=== PATIENT | female | born 1950 | race Caucasian/White ===

== ENCOUNTER 2017-09-29 14:40 | Inpatient (IN) | payer MEDICARE, OTHER ==
[~2017-09-29] VITALS: Ht 152.4 cm; Wt 68.0 kg
[2017-09-29] MEDS ORDERED: SODIUM CHLORIDE 0.9% 1,000 ML IVB ONE (15:14)
[2017-09-29 15:30] LABS: Basophils # (auto) 0.1 uL; Basophils % (auto) 1.2 % (0.0-2.0); Eosinophils # (auto) 0.2 uL; Eosinophils % (auto) 3.8 % (0.0-7.0); Hematocrit 37.7 % (36.0-46.0); Hemoglobin 12.1 g/dL (12.2-16.2); Lymphocytes % (auto) 15.8 % (10.0-50.0); Mean Corpuscular Hemoglobin 27.6 pg (28.0-32.0); Mean Corpuscular Hgb Conc. 32.1 g/dL (32.0-36.0); Monocytes # (auto) 0.4 uL; Monocytes % (auto) 6.3 % (0.0-12.0); Neutrophils # (auto) 4.5 uL; Neutrophils % (auto) 72.9 % (37.0-80.0); Nucleated Red Blood Cells % 0.1 %; Platelet Count (auto) 389 10^3/uL (140-450); Red Blood Cells 4.39 10^6/uL (4.0-5.20); Red Cell Distribution Width 18.5 % (11.8-14.3); White Blood Cell 6.2 10^3/uL (4.4-10.8)
[2017-09-29] MEDS ORDERED: DEXTROSE (50%) 50ML SYRG IV ONE (15:45)
[2017-09-29 15:51] LABS: Albumin 3.4 g/dL (3.4-5.0); BUN/Creatinine Ratio 18.8; Bilirubin, Total 0.4 mg/dL (0.2-1.0); Calcium 8.8 mg/dL (8.5-10.1); Potassium 3.6 mmol/L (3.5-5.1); Total Protein 7.1 g/dL (6.4-8.2)
[2017-09-29 15:52] LABS: INR 1.05 (0.9-1.15); Partial Thromboplastin Time 32.5 sec (22.64-33.71); Prothrombin Time 11.5 sec (9.37-12.3)
[2017-09-29 16:23] LABS: Amylase 39 U/L (25-115); Blood Alcohol < 3.0 mg/dL (0-5); Lipase 107 U/L (73-393)
[2017-09-29] MEDS: SODIUM CHLORIDE 0.9% 1,000 ML IV SCH (18:24)
[2017-09-29] MEDS ORDERED: HYDROcodone-ACET 5/325MG TAB PO PRN (18:30)
[2017-09-29] MEDS ORDERED: TEMAZEPAM 15 MG CAP PO PRN (18:30)
[2017-09-29] MEDS ORDERED: LACTULOSE 20Gm/30ML SOLN PO PRN (18:30)
[2017-09-29] MEDS ORDERED: DEXTROSE (50%) 50ML SYRG IV PRN (18:30)
[2017-09-29] MEDS ORDERED: LORazepam 0.5 MG TAB PO PRN (18:30)
[2017-09-29] MEDS ORDERED: PROMETHAZINE HCL 25 MG/ML 1ML IV PRN (18:30)
[2017-09-29] MEDS ORDERED: MORPHINE SULFATE 4 MG/ML SYR/VIAL IV PRN ×2 (18:30)
[2017-09-29] MEDS ORDERED: NITROGLYCERIN 0.4 MG SL TAB SL PRN (18:30)
[2017-09-29] MEDS ORDERED: ACETAMINOPHEN 500 MG TAB PO PRN (18:30)
[2017-09-29 19:21] LABS: Urine Bacteria NONE SEEN /hpf (None Seen); Urine Blood Negative /uL (Negative); Urine Mucus FEW (None Seen); Urine Specific Gravity 1.008 (1.001-1.035); Urine WBC <1 /hpf (0 - 5)
[2017-09-29] MEDS: ACCU-CHEK COMFORT CURVE STRIP VI SCH ×2 (20:04→23:39)
[2017-09-29 21:20] VITALS: BP 122/69
[2017-09-29 22:00] VITALS: BP 122/69
[2017-09-30] MEDS: ACCU-CHEK COMFORT CURVE STRIP VI SCH ×5 (03:50→20:16)
[2017-09-30 05:00] VITALS: BP 123/69
[2017-09-30 05:23] LABS: Basophils # (auto) 0.1 uL; Basophils % (auto) 0.9 % (0.0-2.0); Eosinophils # (auto) 0.2 uL; Eosinophils % (auto) 3.5 % (0.0-7.0); Hematocrit 33.1 % (36.0-46.0); Hemoglobin 10.7 g/dL (12.2-16.2); Lymphocytes # (auto) 1.4 uL; Mean Corpuscular Hemoglobin 27.9 pg (28.0-32.0); Mean Corpuscular Hgb Conc. 32.3 g/dL (32.0-36.0); Mean Corpuscular Volume 86.4 fL (80.0-100.0); Monocytes # (auto) 0.5 uL; Monocytes % (auto) 8.5 % (0.0-12.0); Neutrophils # (auto) 4.1 uL; Neutrophils % (auto) 65.1 % (37.0-80.0); Platelet Count (auto) 353 10^3/uL (140-450); Red Blood Cells 3.84 10^6/uL (4.0-5.20); Red Cell Distribution Width 18.2 % (11.8-14.3); White Blood Cell 6.2 10^3/uL (4.4-10.8)
[2017-09-30 05:43] LABS: Albumin 2.7 g/dL (3.4-5.0); BUN/Creatinine Ratio 17.9; Bilirubin, Total 0.6 mg/dL (0.2-1.0); Calcium 8.2 mg/dL (8.5-10.1); Potassium 4.5 mmol/L (3.5-5.1); Total Protein 5.9 g/dL (6.4-8.2)
[2017-09-30] MEDS: SODIUM CHLORIDE 0.9% 1,000 ML IV SCH ×3 (06:41→20:15)
[2017-09-30 09:00] VITALS: BP 139/74
[2017-09-30] MEDS ORDERED: ENOXAPARIN SOD 40 MG/0.4 ML SYRINGE SC SCH (10:00)
[2017-09-30] MEDS: PANTOPRAZOLE 40 MG TAB PO SCH (10:12)
[2017-09-30] MEDS: ENOXAPARIN SOD 30 MG/0.3 ML SYRINGE SC SCH (10:13)
[2017-09-30 11:31] LABS: Hematocrit 34.5 % (36.0-46.0); Hemoglobin 10.9 g/dL (12.2-16.2)
[2017-09-30] MEDS: InsuLIN REG 1unit/0.01ml Soln (100units/ml) SC SCH ×3 (11:37→20:16)
[2017-09-30 13:00] VITALS: BP 146/85
[2017-09-30 16:36] LABS: Hematocrit 34.7 % (36.0-46.0); Hemoglobin 11.1 g/dL (12.2-16.2)
[2017-09-30 17:00] VITALS: BP 135/75
[2017-09-30] MEDS ORDERED: FERR1TAB5 PO (18:45)
[2017-09-30] MEDS ORDERED: SIMV10TA84 PO (18:45)
[2017-09-30] MEDS ORDERED: INSU70IN3 SC (18:45)
[2017-09-30] MEDS ORDERED: SITA100T7 PO (18:45)
[2017-09-30] MEDS ORDERED: LEVO125T7 PO (18:45)
[2017-09-30] MEDS ORDERED: CHOL200021 PO (18:45)
[2017-09-30] MEDS ORDERED: ASPI325T4 PO (18:45)
[2017-09-30] MEDS ORDERED: MAGN400T5 OR (18:45)
[2017-09-30] MEDS ORDERED: FURO40TA4 PO (18:45)
[2017-09-30] MEDS ORDERED: GLIP-116 PO (18:45)
[2017-09-30] MEDS ORDERED: METF-371 PO (18:45)
[2017-09-30] MEDS ORDERED: METO25TA62 PO (18:45)
[2017-09-30 22:02] VITALS: BP 129/86
[2017-09-30 22:20] LABS: Hematocrit 33.4 % (36.0-46.0); Hemoglobin 10.7 g/dL (12.2-16.2)
[2017-10-01] MEDS: ACCU-CHEK COMFORT CURVE STRIP VI SCH ×4 (00:17→11:55)
[2017-10-01] MEDS: InsuLIN REG 1unit/0.01ml Soln (100units/ml) SC SCH ×4 (00:21→11:56)
[2017-10-01] MEDS: SODIUM CHLORIDE 0.9% 1,000 ML IV SCH ×2 (05:32→15:15)
[2017-10-01 06:04] VITALS: BP_SYST 152
[2017-10-01 06:12] LABS: Basophils # (auto) 0.1 uL; Eosinophils # (auto) 0.3 uL; Eosinophils % (auto) 3.8 % (0.0-7.0); Hematocrit 34.6 % (36.0-46.0); Hemoglobin 11.4 g/dL (12.2-16.2); Lymphocytes # (auto) 1.3 uL; Lymphocytes % (auto) 18.1 % (10.0-50.0); Mean Corpuscular Hemoglobin 28.2 pg (28.0-32.0); Mean Corpuscular Volume 85.5 fL (80.0-100.0); Monocytes # (auto) 0.6 uL; Monocytes % (auto) 7.9 % (0.0-12.0); Neutrophils % (auto) 69.2 % (37.0-80.0); Nucleated Red Blood Cells % 0.1 %; Platelet Count (auto) 349 10^3/uL (140-450); Red Blood Cells 4.05 10^6/uL (4.0-5.20); Red Cell Distribution Width 17.7 % (11.8-14.3); White Blood Cell 7.2 10^3/uL (4.4-10.8)
[2017-10-01 06:39] LABS: Albumin 2.9 g/dL (3.4-5.0); Bilirubin, Total 0.6 mg/dL (0.2-1.0); Calcium 8.5 mg/dL (8.5-10.1); Potassium 4.1 mmol/L (3.5-5.1); Total Protein 6.2 g/dL (6.4-8.2)
[2017-10-01 09:00] VITALS: BP_SYST 148; BP_SYST 154; BP_DIAS 79; BP_DIAS 82
[2017-10-01] MEDS: PANTOPRAZOLE 40 MG TAB PO SCH (09:37)
[2017-10-01] MEDS: ENOXAPARIN SOD 30 MG/0.3 ML SYRINGE SC SCH (09:37)
[2017-10-01] MEDS ORDERED: InsuLIN REG 1unit/0.01ml Soln (100units/ml) SC SCH (16:00)
== END 2017-10-01 15:46 | disposition home or self-care (01) | DRG 637 ==
LOC: ER 14:40 → EDBD 14:40 → TELE 14:41 → TELE-WESTW 21:14 → WEST WING 21:14 → TELE-WESTW 21:20 → WEST WING 10-01 05:21
PROVIDERS: ADMIT Internal Medicine; ATTEND Internal Medicine
DX: E11.65 Type 2 diabetes mellitus with hyperglycemia (principal); G93.41 Metabolic encephalopathy; E11.649 Type 2 diabetes mellitus with hypoglycemia without coma; E11.21 Type 2 diabetes mellitus with diabetic nephropathy; I13.0 Hypertensive heart and chronic kidney disease with heart failure and stage 1 through stage 4 chronic kidney disease, or unspecified chronic kidney disease; D63.8 Anemia in other chronic diseases classified elsewhere; E03.9 Hypothyroidism, unspecified; E11.22 Type 2 diabetes mellitus with diabetic chronic kidney disease; N18.3 Chronic kidney disease, stage 3 (moderate); E78.5 Hyperlipidemia, unspecified; F17.210 Nicotine dependence, cigarettes, uncomplicated
CPT/HCPCS: 36415; 70450; 71045; 80053; 80061; 80320; 81001; 82150; 82550; 82962; 83036; 83605; 83690; 83735; 83880; 84443; 84484; 85014; 85018; 85025; 85610; 85652; 85730; 87040; 87081; 87086; 93005; 94761; 96374; J1815